=== PATIENT | female | born 2000 | race Caucasian/White ===

== ENCOUNTER 2021-06-30 10:14 | Outpatient (REF) | payer OTHER, SELFPAY ==
[2021-06-30 11:32] LABS: Hematocrit 40.1 % (37.0-47.0); Hemoglobin 13.8 g/dl (12.0-16.0); Mean Corpuscular HGB Conc 34.4 g/dl (31.0-35.0); Mean Corpuscular Hemoglobin 29.7 pg (27.0-33.0); Mean Corpuscular Volume 86.2 fL (80.0-98.0); Mean Platelet Volume 10.7 fL (9.4-12.3); Platelet Count 180 X10*3/uL (160-400); Red Blood Count 4.65 X10*6/uL (4.20-5.50); Red Cell Distribution Width 11.7 % (11.0-16.0)
[2021-06-30 12:12] LABS: Anion Gap 10 (12-20); Blood Urea Nitrogen 14 mg/dL (9-16); Calcium 9.6 mg/dL (8.4-10.2); Carbon Dioxide 28 mmol/L (22-29); Chloride 105 mmol/L (96-108); Estimated Glomerular Filt Rate > 60; Glucose Random 123 mg/dL (60-115); Potassium 3.8 mmol/L (3.3-5.1); Sodium 139 mmol/L (135-145)
[2021-06-30 12:17] LABS: Erythrocyte Sedimentation Rate 14 MM/HR (0-20)
== END 2021-06-30 10:15 | disposition home or self-care (01) ==
LOC: HO.HMGCLDS 10:14
PROVIDERS: PCP Internal Medicine; Visit Provider Internal Medicine
DX: R10.9 Unspecified abdominal pain (principal)
CPT/HCPCS: 36415; 80048; 85027; 85652

== ENCOUNTER 2022-06-09 06:07 | Outpatient (REF) | payer OTHER, SELFPAY ==
[2022-06-09 11:22] LABS: MANUAL DIFF FLAG NO
[2022-06-09 11:30] LABS: Appearance Urine Cloudy; Basophils Percent Auto 0.4 % (0-2); Color Urine Yellow; Eosinophils Absolute Auto 0.1 X10*3/uL (0.0-0.4); Eosinophils Percent Auto 1.3 % (0-4); Glucose Urine UA Negative (Negative); Hematocrit 36.4 % (37.0-47.0); Hemoglobin 12.5 g/dl (12.0-16.0); Imm Gran Abs Auto 0.02 X10*3/uL (0.00-0.03); Imm Gran Pct Auto 0.3 % (0.0-0.4); Leukocyte Esterase Urine Small (1+) (Negative); Lymphocytes Absolute Auto 2.9 X10*3/uL (1.2-4.9); Lymphocytes Percent Auto 43.2 % (20-40); Mean Corpuscular HGB Conc 34.3 g/dl (31.0-35.0); Mean Corpuscular Hemoglobin 29.6 pg (27.0-33.0); Mean Corpuscular Volume 86.1 fL (80.0-98.0); Mean Platelet Volume 10.7 fL (9.4-12.3); Monocytes Absolute Auto 0.7 X10*3/uL (0.1-1.2); Monocytes Percent Auto 10.2 % (2-11); Neutrophils Percent Auto 44.6 % (45-73); Nitrite Urine Positive (Negative); PH 6.5 (5.0-9.0); Platelet Count 220 X10*3/uL (160-400); Red Blood Count 4.23 X10*6/uL (4.20-5.50); Red Cell Distribution Width 11.9 % (11.0-16.0); UMIC TRIGGER UACC YES; Urine Blood Negative (Negative); Urine Ketones Negative (Negative); Urine Protein Negative (Neg-Trace); White Blood Count 6.8 X10*3/uL (4.8-10.8)
[2022-06-09 11:35] LABS: Bacteria Urine 4+ (None Seen); Hyaline Casts Urine 0-2 /LPF (0-2); RBC Urine 0-2 /HPF (0-2); UACC Culture Trigger YES; WBC Urine 21-50 /HPF (0-5)
[2022-06-09 12:04] LABS: Alanine Aminotransferase 9 U/L (0-31); Alkaline Phosphatase 46 U/L (39-117); Anion Gap 12 (12-20); Aspartate Amino Transferase 12 U/L (5-31); Bilirubin Total 0.4 mg/dL (0.0-1.0); Blood Urea Nitrogen 14 mg/dL (9-16); Carbon Dioxide 25 mmol/L (22-29); Chloride 106 mmol/L (96-108); Cholesterol 133 mg/dL; Estimated Glomerular Filt Rate > 60; Glucose Fasting 81 mg/dL (60-99); HDL Cholesterol 35 mg/dL; LDL Cholesterol Calculated 88 mg/dl; Potassium 3.8 mmol/L (3.3-5.1); Sodium 139 mmol/L (135-145); TSH reflex Free T4 5.64 uIU/mL (0.32-4.0); Total Protein 6.3 g/dL (6.5-8.0); Triglycerides 51 mg/dL
[2022-06-09 12:44] LABS: Free T4 (Free Thyroxine) 0.95 ng/dL (0.71-1.85)
== END 2022-06-09 06:08 | disposition home or self-care (01) ==
LOC: HO.HMGCLDS 06:07
PROVIDERS: PCP Internal Medicine; Visit Provider Internal Medicine
DX: Z00.01 Encounter for general adult medical examination with abnormal findings (principal); N93.8 Other specified abnormal uterine and vaginal bleeding; R63.6 Underweight
CPT/HCPCS: 36415; 80053; 80061; 81001; 84439; 84443; 85025; 87086; 87088; 87186

== ENCOUNTER 2022-06-09 20:20 | Emergency (ER) | payer OTHER, SELFPAY ==
[2022-06-09 20:23] VITALS: BP 133/79; PULSE 95; RESP 16; TEMP 36.7; O2SAT 98; BMI 19.5
--- NOTE | 2022-06-09 20:25 | ED_ITS ---
HPI - Female Genitourinary General Chief complaint: General Medical Stated complaint: ?UTI Time Seen by Provider: 06/09/22 21:29 Related Data Previous Rx's Medication Instructions Recorded cefuroxime axetil 250 mg tablet 250 mg PO BID 7 days #14 tabs 06/09/22 phenazopyridine 200 mg tablet 200 mg PO TID 2 days #6 tabs 06/09/22 (Pyridium) Allergies Allergy/AdvReac Type Severity Reaction Status Date / Time No Known Allergies Allergy Verified 03/28/22 12:50 [facility] Social History Social History Housing: Apartment Patient Tobacco Use Status: Never used Tobacco e-Cigarette/Vaping Use: Never Used Advance Directives: No Advance Directives Information Provided: Yes Current occupational status: employed Cognitive needs: No Hearing needs: No Vision needs: No Physical Exam Vital Signs: Vital Signs: Last Vital Signs Temp 98.0 F 06/09/22 20:23 Pulse 95 06/09/22 20:23 Resp 16 06/09/22 20:23 BP 133/79 06/09/22 20:23 Pulse Ox 98 06/09/22 20:23 O2 Del Method 06/09/22 20:23 BMI result Body Mass Index 19.5 Course Course Course Narrative: RME - 21 yo female presenting with 2 weeks of ongoing dysuria, increased frequency and urgency. She went to [place] [id number] in the last 2 weeks and she reports that her urine tests were not convincing enough to treat. She was tested for all STIs and was negative. She denies fever, chills, abdominal pain, N/V/D. Will repeat UA. Medical Decision Making Lab Data Labs: Lab Results 06/09/22 06/09/22 Range/Units 21:08 21:08 Urine Color Yellow Urine Appearance Clear Urine pH 7.0 (5.0-9.0) Ur Specific [place] <= 1.005 (1.005-1.025) Urine Protein Negative (Neg-Trace) mg/dL Urine Glucose (UA) Negative (Negative) mg/dL Urine Ketones Negative (Negative) mg/dL Urine Blood Negative (Negative) Urine Nitrite Negative (Negative) Ur Leukocyte Esterase Moderate (2+) H (Negative) Urine RBC 0-2 (0-2) /HPF Urine WBC 11-20 H (0-5) /HPF Ur Squamous Epith Cells 0-2 (0-2) /HPF Urine Bacteria Trace (None Seen) Hyaline Casts 0-2 (0-2) /LPF Urine Test NEGATIVE (NEGATIVE) Discharge Plan Discharge Clinical Impression: UTI (urinary tract infection) Patient Disposition: Home, Self-Care Instructions: Urinary Tract Infection in Women (ED) Additional Instructions: Drink plenty of fluids Take antibiotics as prescribed Follow-up with PCP if not better Prescriptions: New cefuroxime axetil 250 mg tablet 250 mg PO BID 7 Days Qty: 14 0RF phenazopyridine [Pyridium] 200 mg tablet 200 mg PO TID 2 Days Qty: 6 0RF
--- NOTE | 2022-06-09 21:12 | PC.NURSE ---
urine has been sent down. Pt reports having mild burning when urinating and for a few minutes after
[2022-06-09 21:18] LABS: Appearance Urine Clear; Color Urine Yellow; Glucose Urine UA Negative (Negative); Leukocyte Esterase Urine Moderate (2+) (Negative); Nitrite Urine Negative (Negative); Specific Gravity - Urine <= 1.005 (1.005-1.025); UMIC TRIGGER UACC YES; Urine Blood Negative (Negative); Urine Ketones Negative (Negative); Urine Protein Negative (Neg-Trace)
[2022-06-09 21:21] LABS: UPreg QC Valid YES; Urine Pregnancy NEGATIVE (NEGATIVE)
[2022-06-09 21:23] LABS: Bacteria Urine Trace (None Seen); Hyaline Casts Urine 0-2 /LPF (0-2); RBC Urine 0-2 /HPF (0-2); Squamous Epithelial Cell Urine 0-2 /HPF (0-2); UACC Culture Trigger YES
== END 2022-06-09 21:55 | disposition home or self-care (01) ==
PROVIDERS: Physician Assistant; Emergency Provider Internal Medicine; PCP Internal Medicine
DX: N39.0 Urinary tract infection, site not specified (principal); R35.0 Frequency of micturition; Z79.899 Other long term (current) drug therapy
CPT/HCPCS: 81001; 81025; 99283

== ENCOUNTER 2022-06-15 16:17 | Outpatient (REF) | payer OTHER, SELFPAY ==
[2022-06-16 12:12] LABS: BV Int Neg Control Negative (Negative); BV Int Pos Control Positive (Positive)
== END 2022-06-15 16:18 | disposition home or self-care (01) ==
LOC: HO.LNP 16:17
PROVIDERS: Visit Provider Nurse Practitioner Family
DX: N89.8 Other specified noninflammatory disorders of vagina (principal)
CPT/HCPCS: 87480; 87510; 87660

== ENCOUNTER 2022-08-24 09:42 | Outpatient (REF) | payer OTHER, SELFPAY ==
[2022-08-24 16:39] LABS: CT PCR NOT DETECTED (Not Detect.); NG PCR NOT DETECTED (Not Detect.)
== END 2022-08-24 09:43 | disposition home or self-care (01) ==
LOC: HO.LNP 09:42
PROVIDERS: PCP Internal Medicine; Visit Provider Obstetrics & Gynecology
DX: N93.9 Abnormal uterine and vaginal bleeding, unspecified (principal); N89.8 Other specified noninflammatory disorders of vagina; B37.31 Acute candidiasis of vulva and vagina
CPT/HCPCS: 0353U; 99202

== ENCOUNTER 2022-08-24 10:21 | Outpatient (REF) | payer OTHER, SELFPAY ==
[2022-08-25 10:58] LABS: BV Int Neg Control Negative (Negative); BV Int Pos Control Positive (Positive)
[2022-08-29 05:24] LABS: Thyroglobulin Antibodies <1 IU/mL (< or = 1)
== END 2022-08-24 10:22 | disposition home or self-care (01) ==
LOC: HO.LAB 10:21
PROVIDERS: PCP Internal Medicine; Visit Provider Obstetrics & Gynecology
DX: E03.8 Other specified hypothyroidism (principal); B37.31 Acute candidiasis of vulva and vagina; N93.9 Abnormal uterine and vaginal bleeding, unspecified
CPT/HCPCS: 36415; 86800; 87480; 87510; 87660

== ENCOUNTER 2022-09-07 11:17 | Outpatient (REF) | payer OTHER, SELFPAY ==
--- NOTE | ~2022-09-07 | US_ITS ---
EXAMINATION: US PELVIS CLINICAL INFORMATION: Abnormal uterine and vaginal bleeding. COMPARISON: None available. TECHNIQUE: Ultrasound of the pelvis is performed using both transabdominal and transvaginal transducers along with Doppler. Transvaginal imaging is performed due to inadequate visualization transabdominally. FINDINGS: Uterus: The uterus is anteverted and measures 7.4 x 3.0 x 3.8 cm. The double wall endometrial thickness is 6 mm. The uterus is smooth in contour and has normal myometrial echogenicity. No visible fibroid. Adnexa: Both ovaries are visualized. There is normal color flow to the adnexa. There is no ovarian torsion. Bilateral follicular cysts are seen. There is trace pelvic ascites . Right ovary measures 3.5 x 2.2 x 2.0 cm for a volume of 8.1 mL and appears normal. Left ovary measures 3.2 x 3.0 x 2.3 cm for a volume of 11.6 mL and appears normal. US/US pelvic and transvaginal IMPRESSION: Negative exam.
== END 2022-09-07 11:18 | disposition home or self-care (01) ==
LOC: HO.US 11:17
PROVIDERS: PCP Internal Medicine; Visit Provider Obstetrics & Gynecology
DX: N93.9 Abnormal uterine and vaginal bleeding, unspecified (principal)
CPT/HCPCS: 76830; 76856

== ENCOUNTER 2022-10-12 11:14 | Outpatient (REF) | payer OTHER, SELFPAY ==
[2022-10-12 12:56] LABS: Hematocrit 38.9 % (37.0-47.0); Hemoglobin 13.4 g/dl (12.0-16.0); Mean Corpuscular HGB Conc 34.4 g/dl (31.0-35.0); Mean Corpuscular Hemoglobin 29.7 pg (27.0-33.0); Mean Corpuscular Volume 86.3 fL (80.0-98.0); Mean Platelet Volume 10.3 fL (9.4-12.3); Platelet Count 216 X10*3/uL (160-400); Red Blood Count 4.51 X10*6/uL (4.20-5.50); Red Cell Distribution Width 12.1 % (11.0-16.0); White Blood Count 5.8 X10*3/uL (4.8-10.8)
[2022-10-12 13:50] LABS: HCG Quantitative < 2 mIU/mL; TSH reflex Free T4 2.18 uIU/mL (0.32-4.0)
[2022-10-12 18:29] LABS: CT PCR NOT DETECTED (Not Detect.); NG PCR NOT DETECTED (Not Detect.)
[2022-10-13 11:05] LABS: BV Int Neg Control Negative (Negative); BV Int Pos Control Positive (Positive)
[2022-10-13 18:50] LABS: Prolactin 9.4 ng/mL
== END 2022-10-12 11:15 | disposition home or self-care (01) ==
LOC: HO.LNP 11:14
PROVIDERS: PCP Internal Medicine; Visit Provider Obstetrics & Gynecology
DX: N93.9 Abnormal uterine and vaginal bleeding, unspecified (principal); B37.31 Acute candidiasis of vulva and vagina
CPT/HCPCS: 0353U; 84146; 84443; 84702; 85027; 87480; 87510; 87660; 99212

== ENCOUNTER 2022-12-15 08:18 | Outpatient (REF) | payer OTHER, SELFPAY ==
[2022-12-15 12:36] LABS: TSH reflex Free T4 2.21 uIU/mL (0.32-4.0)
[2022-12-16 13:13] LABS: Thyroglobulin Antibodies <1 IU/mL (< or = 1)
== END 2022-12-15 08:19 | disposition home or self-care (01) ==
LOC: HO.HMGCLDS 08:18
PROVIDERS: PCP Internal Medicine; Visit Provider Internal Medicine
DX: R79.89 Other specified abnormal findings of blood chemistry (principal)
CPT/HCPCS: 36415; 84443; 86800

== ENCOUNTER 2023-03-08 09:15 | Outpatient (REF) | payer OTHER, SELFPAY ==
[2023-03-09 14:15] LABS: BV Int Neg Control Negative (Negative); BV Int Pos Control Positive (Positive)
== END 2023-03-08 09:16 | disposition home or self-care (01) ==
LOC: HO.LAB 09:15
PROVIDERS: PCP Internal Medicine; Visit Provider Advanced Practice Midwife
DX: N94.9 Unspecified condition associated with female genital organs and menstrual cycle (principal); N89.8 Other specified noninflammatory disorders of vagina; Z32.02 Encounter for pregnancy test, result negative
CPT/HCPCS: 81003; 81025; 87480; 87510; 87660; 99212

== ENCOUNTER 2023-03-08 09:15 | Outpatient (AMB) | payer OTHER, SELFPAY ==
[2023-03-08 09:31] VITALS: BP 90/60; BMI 17.6
--- NOTE | 2023-03-08 09:31 | MHC.OFFVIS ---
Intake Vital Signs 03/08/23 09:31 Height 5 ft Weight 90 lb BMI 17.6 BP 90/60 Intake Visit Reasons: ?yeast infection Intake Note: pt c/o vag burning and discharge The patient agreed to use of a medical typist during this encounter. Scribed for DANITZA Cannon by Diann Saez medical typist, on 03/08/2023 at 9:45am EST. Data Systems Manager: Data Systems Manager Present (Any) Allergies No Known Allergies Allergy (Verified 03/08/23 09:31) Is last menstrual period known: Yes Last menstrual period: 01/28/23 HPI HPI Comments History of Present Illness Details She is here today with concerns of possible yeast infection with vaginal itching and burning which lasted the past 3 months. Hx of UTI and BV. Currently sexually active with intermediate manager partner who lives across country. Does not use any form of BC. Not interested in BC today. Denies any new soaps, pelvic pain or urinary issues. Reports she washes vaginal area with water only. STD testing recently done with PCP, declines today. PFSH Medical History Irregular periods Social History Household Members Other:: dad Housing: Apartment Alcohol intake: never Patient Tobacco Use Status: Never used Tobacco e-Cigarette/Vaping Use: Never Used Current occupational status: employed Current occupation: Community Mental Health Worker Sexual orientation: Straight/Heterosexual Gender identity: Female Cognitive needs: No Hearing needs: No Vision needs: No Female Reproductive History Menstrual Date of last menstrual period: 01/28/23 Physical Exam Vital Signs: Last Vital Signs BP 90/60 03/08/23 09:31 BMI result Body Mass Index 17.6 Const General: cooperative, healthy appearing, comfortable, no acute distress, well developed, alert and awake Other: external erythema on the labia minora General: Yes bladder normal to palpation External Female Exam: normal external appearance and normal appearance of the urethra Speculum Exam - Vagina: normal appearance of the vagina, normal palpation and abnormal vaginal discharge white (small amount) Speculum Exam - Cervix: normal appearance of the cervix and normal palpation Bimanual exam- vagina & uterus: normal bimanual exam, normal palpation, bladder normal to palpation and normal palpation Bimanual Exam- Adnexa, other: normal adnexae and no masses Results AMB Urinalysis, Automated UA Leukoctes 0.5 Jaspal/uL Last Edit by Clau Gomez Nereyda on 03/08/23 09:46 UA Nitrite Negative Last Edit by Clau Gomez [facility] on 03/08/23 09:46 UA Urobilinogen 0 mg/dL Last Edit by Clau Gomez [facility] on 03/08/23 09:46 UA Protein 0.5 mg/dL Last Edit by Clau Gomez [facility] on 03/08/23 09:46 UA pH 6.0 Last Edit by Clau Gomez [facility] on 03/08/23 09:46 UA Blood 0 Jesus/uL Last Edit by Clau Gomez [facility] on 03/08/23 09:46 UA Specific [place] 1.025 Last Edit by Clau Gomez [facility] on 03/08/23 09:46 UA Ketone Negative Last Edit by Clau Gomez [facility] on 03/08/23 09:46 UA Bilirubin 0 mg/dL Last Edit by Clau Gomez [facility] on 03/08/23 09:46 UA Glucose 0 mg/dL Last Edit by Clau Gomez [facility] on 03/08/23 09:46 AMB Test Urine AMB Test Urine Negative Last Edit by Clau Gomez [facility] on 03/08/23 09:46 Results Reviewed Results Reviewed: Laboratory Last Values Urine pH (Auto) 6.0 03/08/23 09:45 Specific [place] (Auto) 1.025 03/08/23 09:45 Urine Protein (Auto) 0.5 mg/dL 03/08/23 09:45 Glucose (UA)(Auto) 0 mg/dL 03/08/23 09:45 Urine Ketones (Auto) Negative 03/08/23 09:45 Urine Blood (Auto) 0 Jesus/uL 03/08/23 09:45 Urine Nitrite (Auto) Negative 03/08/23 09:45 Urine Bilirubin (Auto) 0 mg/dL 03/08/23 09:45 Urine Urobilinogen (Auto) 0 mg/dL 03/08/23 09:45 Leukocyte Esterase (Auto) 0.5 Jaspal/uL 03/08/23 09:45 [facility] Clinic Negative 03/08/23 09:45 Assessment & Plan Assessment & Plan (1) Vaginal burning: Code(s): N94.9 - Unspecified condition associated with female genital organs and menstrual cycle Plan: Discussed: Clean with water only, no soaps to the area, dry well and wear cotton underwear. BV testing done today. Await results and treat accordingly. Encouraged to use condoms for STD and prevention. All of her questions and concerns were addressed to the best of my ability and shared decision making. She is agreeable to plan of care. (2) Vaginal discharge: Code(s): N89.8 - Other specified noninflammatory disorders of vagina (3) Vaginal itching: Code(s): N89.8 - Other specified noninflammatory disorders of vagina Orders: Orders AMB Urinalysis Automated Today N94.9 - Unspecified condition associated with female genital organs and menstrual cycle Bacterial Vaginosis Panel Today N89.8 - Other specified noninflammatory disorders of vagina, N94.9 - Unspecified condition associated with female genital organs and menstrual cycle AMB HCG Urine Test Today Z32.02 - Encounter for test, result negative Coding Level of Care Code Est Pt Level 3 (81554) Diagnoses Vaginal burning N94.9 Vaginal discharge N89.8 Vaginal itching N89.8
== END 2023-03-08 10:25 | disposition home or self-care (01) ==
PROVIDERS: PCP Internal Medicine; Visit Provider Advanced Practice Midwife
DX: N94.9 Unspecified condition associated with female genital organs and menstrual cycle (principal); N89.8 Other specified noninflammatory disorders of vagina; Z32.02 Encounter for pregnancy test, result negative
CPT/HCPCS: 99213

== ENCOUNTER 2023-05-30 13:53 | Outpatient (AMB) | payer OTHER, SELFPAY ==
[2023-05-30 13:54] VITALS: BP 96/58; PULSE 85; O2SAT 97; BMI 18.8
--- NOTE | 2023-05-30 13:54 | A.OFFPC_ITS ---
Vital Signs 05/30/23 13:54 Height 5 ft Weight 96 lb 2 oz BMI 18.8 BP 96/58 L Blood Pressure Location Rt brachial Position Sitting Pulse 85 Pulse Source Pulse Oximeter Pulse Oximetry (%) 97 Oxygen Delivery Method Room Air Intake Visit Reasons: Discuss podiatry referral Allergies No Known Allergies Allergy (Verified 05/30/23 13:55) Medication List - Last Reconciled 05/30/23 by Vadim Handy MD No Known Home Meds Tobacco use date assessed: 05/30/23 Dental Screening Dental Screen Date: 05/30/23 Did you have a dental visit in the last 12 months?: Yes Did you have a dental problem in the last 6 months where you did not have access to dental care?: No Was dental information given to patient?: Patient has dentist HPI Discuss podiatry referral HPI Details Patient is 22-year-old female came in today to talk about discoloration of her toenails patient says that she would like to see a claims adjuster supervisor to be evaluated. She is also moving to [place] end of June. Patient says that she has been having palpitations, and she is not sure if it is because of the move or she is having anxiety EKG done today shows normal sinus rhythm with 72 beats per minute no ST-T changes PFSH Medical History Irregular periods Social History Household Members Other:: dad Housing: Apartment Alcohol intake: never Patient Tobacco Use Status: Never used Tobacco e-Cigarette/Vaping Use: Never Used Current occupational status: employed Current occupation: Sales And Service Specialist Sexual orientation: Straight/Heterosexual Gender identity: Female Cognitive needs: No Hearing needs: No Vision needs: No Questionnaire Thrive Questionnaire Date Thrive assessed: 03/28/22 AUDIT C Alcohol Use Questionnaire (AUDIT-C) 1. How often do you have a drink containing alcohol?: Monthly or less 2. How many drinks containing alcohol do you have on a typical day when you are drinking?: 1 or 2 3. How often do you have six or more drinks on one occasion?: Never Total Score: 1 Score Reviewed/Action Taken: Yes ANTOINE-7 AMB Questionnaire ANTOINE-7 Date ANTOINE - 7 assessed: 03/28/22 Source: Developed by Bart Gasparet B.W. Homero, Vignesh Mcgrath and colleagues, with an educational lars from [employer]. Review of Systems Const Denies chills and Denies fever(s) ENT Denies epistaxis and Denies nasal discharge Resp Denies chest congestion, Denies cough and Denies hemoptysis GI Denies diarrhea and Denies nausea Skin/Breast Denies rash Neuro Reports no additional complaints Psych Reports no additional complaints Endo Reports no additional complaints Physical exam (Primary Care) Vital Signs: Last Vital Signs Pulse 85 05/30/23 13:54 BP 96/58 L 05/30/23 13:54 Pulse Ox 97 05/30/23 13:54 Oxygen Delivery Method Room Air 05/30/23 13:54 BMI result Body Mass Index 18.8 Tobacco/Smoking Status: Tobacco use Status Tobacco use date assessed 05/30/23 05/30/23 13:59 Patient Tobacco Use Status Never used Tobacco 05/30/23 13:59 e-Cigarette/Vaping Use Never Used 05/30/23 13:59 Thrive Assessment: Date of Thrive Assessment Date Thrive assessed 03/28/22 05/30/23 13:59 Const General: cooperative, comfortable and no acute distress Orientation/consciousness: patient oriented x3 HENMT Head: Yes normocephalic Eyes General: appearance normal, both eyes and all related structures Neck Neck: Yes supple Resp Effort & Inspection: normal respiratory effort, no cough and no stridor Cardio Rhythm: regular rhythm Heart sounds: S1 normal heart sound present and S2 normal heart sound present Skin General skin exam: turgor normal Neuro General: patient oriented x3, tone normal and moves all extremities Extrem Other: Both toenails discolored Right lower extremity: no edema Left lower extremity: no edema Office Procedures EKG [id number], Complete Assessment and Plan Assessment & Plan (1) Palpitations: Code(s): R00.2 - Palpitations (2) Toenail deformity: Code(s): L60.8 - Other nail disorders Plan Patient is 22-year-old female came in today to talk about discoloration of her toenails patient says that she would like to see a claims adjuster supervisor to be evaluated. She is also moving to [place] end of June. Patient says that she has been having palpitations, and she is not sure if it is because of the move or she is having anxiety EKG done today shows normal sinus rhythm with 72 beats per minute no ST-T changes Orders: Orders AMB EKG-In Office Today R00.2 - Palpitations Referrals Podiatry Referral L60.8 - Other nail disorders Coding Level of Care Code Est Pt Level 3 (32577) Diagnoses Palpitations R00.2 Toenail deformity L60.8 CPT Codes EKG - CPT: 73571-[id number], Complete ([id number])
== END 2023-05-30 14:33 | disposition home or self-care (01) ==
PROVIDERS: PCP Internal Medicine; Visit Provider Internal Medicine
DX: R00.2 Palpitations (principal); L60.8 Other nail disorders
CPT/HCPCS: 93000; 99213